=== PATIENT | female | born 1965 | race Caucasian/White ===

== ENCOUNTER 2019-03-02 14:14 | Emergency (ER) | payer BC ==
[2019-03-02 16:06] VITALS: BP 104/69
[2019-03-02] MEDS ORDERED: predniSONE TAB* 20 MG PO ONE (16:42)
[2019-03-02] MEDS ORDERED: Albuterol 2.5 MG/3 ML NEB.SOL* (0.083%) INH ONE (16:43)
--- NOTE | 2019-03-02 16:43 | UC ---
UC General HPI - HPI Summary HPI Summary: PT IS C/O BEING SICK FOR 3 DAYS. IT BEGAN A HEAD COLD THAT MOVED INTO HER CHEST. SHE IS C/O A COUGH WITH CONGESTION THAT SHE CAN NOT RAISE. OCCASIONAL SOB AND WHEEZING. + HX ASTHMA. NO CP OR FEVER. - History of Current Complaint Chief Complaint: UCRespiratory Stated Complaint: CONGESTION COUGH RUNNY NOSE EAR Time Seen by Provider: 03/02/19 16:36 Hx Obtained From: Patient Hx Last Menstrual Period: 08/19/14 Onset/Duration: Gradual Onset Timing: Constant Pain Intensity: 0 Associated Signs & Symptoms: Negative: Headache - Allergy/Home Medications Allergies/Adverse Reactions: Allergies Allergy/AdvReac Type Severity Reaction Status Date / Time Tetracyclines Allergy Difficulty Verified 03/02/19 16:07 Breathing Home Medications: Home Medications Albuterol HFA INHALER* [Ventolin HFA Inhaler*] 2 puff INH Q4H PRN 03/02/19 [ History Confirmed 03/02/19] Escitalopram Oxalate [Lexapro] 10 mg PO DAILY 03/02/19 [History Confirmed ] Levothyroxine TAB* [Synthroid TAB*] 25 mcg PO DAILY 03/02/19 [History Confirmed 03/02/19] Zolpidem TAB* [Ambien TAB*] 10 mg PO BEDTIME PRN 03/02/19 [History Confirmed ] hydrOXYzine HCL TAB* [Atarax 10 MG TAB*] 2 tab PO BEDTIME PRN 03/02/19 [History Confirmed 03/02/19] PMH/Surg Hx/FS Hx/Imm Hx - Additional Past Medical History Additional PMH: SLEEP DISTURBANCE Endocrine History: Thyroid Disease Respiratory History: Asthma Psychological History: Depression - Surgical History Surgical History: Yes Surgery Procedure, Year, and Place: right hand surgery - Social History Alcohol Use: Occasionally Substance Use Type: None Smoking Status (MU): Never Smoked Tobacco Review of Systems All Other Systems Reviewed And Are Negative: No Constitutional: Negative: Fever, Chills ENT: Positive: Sinus Congestion. Negative: Sore Throat Cardiovascular: Negative: Palpitations, Chest Pain Neurological: Negative: Headache Physical Exam Triage Information Reviewed: Yes Appearance: Well-Appearing Vital Signs: Initial Vital Signs Temp 98.6 F 03/02/19 16:01 Pulse 75 03/02/19 16:01 Resp 20 03/02/19 16:01 BP 104/69 03/02/19 16:01 Pulse Ox 97 03/02/19 16:01 Vital Signs Reviewed: Yes Eyes: Positive: Conjunctiva Clear ENT: Positive: Pharynx normal, Nasal congestion, TMs normal. Negative: Nasal drainage Neck: Positive: Supple, Nontender, No Lymphadenopathy Respiratory: Positive: No respiratory distress, Decreased breath sounds, Other: - congested cough Cardiovascular: Positive: RRR, No Murmur Abdomen Description: Positive: Nontender Neurological: Positive: Alert Psychological: Positive: Age Appropriate Behavior Skin Exam: Normal Diagnostics - Radiology No standard instances Radiology Interpretation Completed By: Radiologist - CXR=NO ACTIVE CARDIOPULMONARY DISEASE. Re-Evaluation - Re-Evaluation First Eval Re-Evaluation Time: 17:12 Change: Improved - better aeration except RLL Course/Dx - Differential Dx - Multi-Symptom Differential Diagnoses: Other - CXR=NAD. antibiotic not indicated. - Diagnoses Provider Diagnosis: URI (upper respiratory infection), Bronchitis, Asthma Discharge ED - Sign-Out/Discharge Documenting (check all that apply): Patient Departure All imaging exams completed and their final reports reviewed: Yes - Discharge Plan Condition: Stable Disposition: HOME Prescriptions: Albuterol HFA INHALER* [Ventolin HFA Inhaler*] 2 puff INH Q6H #1 mdi predniSONE TAB* [Deltasone 20 MG TAB*] 40 mg PO DAILY 4 Days #8 tab Patient Education Materials: Upper Respiratory Infection (DC), Acute Bronchitis (ED), Asthma (ED) Referrals: Anh Suh MD [Primary Care Provider] - 5 Days - Billing Disposition and Condition Condition: STABLE Disposition: Home
== END 2019-03-02 18:02 | disposition home or self-care (01) ==
LOC: UCCORT 14:14
DX: J06.9 Acute upper respiratory infection, unspecified (principal); Z88.1 Allergy status to other antibiotic agents; J45.909 Unspecified asthma, uncomplicated; E07.9 Disorder of thyroid, unspecified; G47.9 Sleep disorder, unspecified; F32.9 Major depressive disorder, single episode, unspecified
CPT/HCPCS: 71046; 99202; G0463; J7512